=== PATIENT | female | born 1990 | race Caucasian/White ===

== ENCOUNTER 2016-12-04 12:53 | Inpatient (IN) | END 2016-12-10 16:25 | disposition home or self-care (01) | DRG 765 | DX: O60.14X0 Preterm labor third trimester with preterm delivery third trimester, not applicable or unspecified (principal); Z68.43 Body mass index [BMI] 50.0-59.9, adult; O13.3 Gestational [pregnancy-induced] hypertension without significant proteinuria, third trimester; O99.214 Obesity complicating childbirth; E66.01 Morbid (severe) obesity due to excess calories; Z30.2 Encounter for sterilization; Z3A.30 30 weeks gestation of pregnancy; Z37.0 Single live birth ==